=== PATIENT | female | born 1925 | race Caucasian/White ===

== ENCOUNTER → 2016-11-15 | Outpatient (CLI) | payer OTHER, BC ==
[~2016-11-15] MED LIST: ADVIN10/60 INH; AMLO2.5T PO; ASPEC325 PO; CHOL100010 PO; DYZ PO; LAMO150T32 PO; LOSA50TA6 PO; MAGNTAB4 PO; PARO20TA4 PO; PRLSR20 PO; SULF800T23 PO
--- NOTE | 2016-11-15 13:51 | DIAGNOSTIC IMAGING REPORT ---
ADDENDUM Addendum: The patient returned for additional imaging of the right kidney. An additional cyst within the lower pole of the right kidney was visualized. However, the solid lesion shown on prior CT could not be identified by sonography. Electronically signed by: Aguila Cooper M.D. 11/15/2016 4:25 PM Dictated Date/Time: 11/15/2016 4:22 PM ORIGINAL REPORT RENAL ULTRASOUND CLINICAL HISTORY: Renal lesion. COMPARISON STUDY: CT of the abdomen and pelvis April 20, 2016. TECHNIQUE: Sonography of the kidneys and the urinary bladder was performed. FINDINGS: The right kidney measures 8.2 cm in maximal dimension and the left measures 9.2 cm. The previously described 1.3 cm lesion arising from the lower pole of the right kidney is not visualized on this exam. There is a 1.5 cm right renal cyst. Malrotation of the right kidney is noted. There is no hydronephrosis. A 3.4 cm left renal cyst is noted. A few smaller renal cysts are noted. Renal cortical thinning is noted. The bladder was suboptimally assessed due to underdistention. IMPRESSION: 1. Nonvisualization of the previously described 1.3 cm lesion arising from the lower pole of the right kidney, likely due to technique. The lower pole of the right kidney was largely obscured on this exam. 2. Multiple bilateral renal cysts. Electronically signed by: Aguila Cooper M.D. 11/15/2016 1:50 PM Dictated Date/Time: 11/15/2016 1:46 PM
== END | disposition home or self-care (01) ==
LOC: C.ULTR 13:02
PROVIDERS: ATTEND Urology
DX: N28.1 Cyst of kidney, acquired (principal)

== ENCOUNTER → 2016-11-25 | Outpatient (CLI) | payer OTHER, BC ==
[2016-11-25 12:23] LABS: BLOOD UREA NITROGEN 39 mg/dl (7-18); BUN/CREATININE RATIO 24.1 (10-20)
== END | disposition home or self-care (01) ==
LOC: C.LAB 11:24
PROVIDERS: ATTEND Urology
DX: N28.9 Disorder of kidney and ureter, unspecified (principal)

== ENCOUNTER → 2016-11-29 | Outpatient (CLI) | payer OTHER, BC ==
[~2016-11-29] MED LIST changes: +OPTIRAY 320 IV PRN
--- NOTE | 2016-11-29 17:31 | DIAGNOSTIC IMAGING REPORT ---
CT SCAN OF THE ABDOMEN COMBO RENAL MASS PROTOCOL CLINICAL HISTORY: Follow-up renal lesion. COMPARISON STUDY: Abdominal CT dated 04/20/2016. Renal ultrasound dated 11/15/2016. TECHNIQUE: Before and following the IV administration of 7 the cc of Optiray 320, CT scan of the abdomen is performed from the lung bases to the pelvic inlet using the renal mass protocol. Images are reviewed in the axial, sagittal, and coronal planes. IV contrast was administered without complication. Automated dose control exposure was utilized. CT DOSE: 690.99 mGycm FINDINGS: Lung bases: The heart is normal in size and without pericardial effusion. Foci of scarring and bronchiectasis are present at both lung bases. There are foci of tree-in-bud nodularity in the lower lobes bilaterally. No lobar consolidation or pleural effusion is identified. Liver: The contrast-enhanced liver is normal in size, contour, and attenuation. There is no intrahepatic biliary ductal dilatation. The hepatic veins and portal veins are patent. Gallbladder: Layering gallstones are seen within the gallbladder. There is no CT evidence of cholecystitis.. Spleen: Normal in size and attenuation. There are numerous calcified splenic granulomas. There is unchanged subcapsular low-attenuation material along the lateral margin of the spleen, likely representing a trace chronic subcapsular hematoma. Pancreas: Moderately atrophic and grossly unremarkable. Adrenal glands: Unremarkable. Kidneys: No renal calculi are identified on the unenhanced series. The contrast enhanced kidneys are atrophic and without hydronephrosis. The kidneys enhance and excrete symmetrically. There is unchanged appearance of enhancing 1.4 cm exophytic mass lesion arising from the lower pole of the right kidney. This is best seen on axial image #174 of the postcontrast series. No additional enhancing lesion is identified in either kidney. Bilateral renal cysts measure up to 3.6 cm. Some of these demonstrate internal complexity, likely representing internal hemorrhage or protein. There is no evidence of urothelial lesion within the renal pelvis bilaterally or involving the proximal ureters. Abdominal vasculature: The abdominal aorta is normal in course and caliber. Bowel: Visualized portions of the small bowel and colon are normal in course and caliber. There are large duodenal diverticula. Moderate colonic fecal retention is observed. Diverticulosis is noted throughout the visualized portions of the colon. Peritoneum: There is no intraperitoneal free air or abdominal ascites. Lymphadenopathy: None. Skeletal structures: The skeletal structures are osteopenic. There is moderate lumbosacral spondylosis. No lytic or blastic lesions are seen. IMPRESSION: 1. Unchanged appearance of a 1.4 cm exophytic enhancing mass arising from the lower pole the right kidney. 2. No additional enhancing mass lesion is seen in either kidney. 3. Numerous complex and simple renal cysts are similar to previous. 4. Cholelithiasis. 5. 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 6. Chronic changes are present at both lung bases as detailed above. 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 Consider pulmonology consultation if clinically warranted. 7. Moderate constipation. 8. Additional findings as above. Electronically signed by: Morales Higgins M.D. 11/29/2016 5:29 PM Dictated Date/Time: 11/29/2016 5:21 PM
== END | disposition home or self-care (01) ==
LOC: C.CTS 16:11
PROVIDERS: ATTEND Urology
DX: N28.1 Cyst of kidney, acquired (principal); K80.20 Calculus of gallbladder without cholecystitis without obstruction; K59.00 Constipation, unspecified

== ENCOUNTER → 2016-12-23 | Outpatient (CLI) | payer OTHER, BC ==
[~2016-12-23] MED LIST changes: -OPTIRAY 320 IV PRN
[2016-12-23 18:02] LABS: BASO % 0.3 %; BASO ABS # 0.02 K/uL (0-0.2); COMPLETE YES; EOS % 2.4 %; HEMATOCRIT 31.8 % (37-47); IG% 0.4 %; LYMPH % 20.8 %; LYMPH ABS # 1.66 K/uL (1.2-3.4); MEAN CELL VOLUME 102.3 fL (80-100); MEAN CORPUSCULAR HEMOGLOBIN 32.8 pg (25-34); MEAN CORPUSCULAR HGB CONC 32.1 g/dl (32-36); MEAN PLATELET VOLUME 9.6 fL (7.4-10.4); MONO % 9.2 %; NEUT % 66.9 %; PLATELET COUNT 214 K/uL (130-400); RED BLOOD COUNT 3.11 M/uL (4.2-5.4); WHITE BLOOD COUNT 7.97 K/uL (4.8-10.8)
[2016-12-23 19:01] LABS: ALT/SGPT 15 U/L (12-78); AST/SGOT 17 U/L (15-37); BLOOD UREA NITROGEN 31 mg/dl (7-18); CALCIUM 9.1 mg/dl (8.5-10.1); CARBON DIOXIDE 30 mmol/L (21-32); CHLORIDE 106 mmol/L (98-107); GLUCOSE 87 mg/dl (70-99); POTASSIUM 4.3 mmol/L (3.5-5.1); SODIUM 142 mmol/L (136-145)
[2016-12-23 19:11] LABS: ALB/GLOB RATIO 1.1 (0.9-2); ALKALINE PHOSPHATASE 108 U/L (45-117)
== END | disposition home or self-care (01) ==
LOC: C.LABSPEC 17:31
PROVIDERS: ATTEND Internal Medicine
DX: R63.4 Abnormal weight loss (principal); I10 Essential (primary) hypertension